=== PATIENT | male | born 1955 | race Caucasian/White ===

== ENCOUNTER 2018-06-08 00:09 | Day surgery (SDC) | payer OTHER ==
[~2018-06-08] VITALS: Ht 185.4 cm; Wt 116.6 kg
[2018-06-08] VITALS (7 sets, daily range): BP systolic 106–141; BP diastolic 69–88
[~2018-06-08 00:09] MED LIST: AMLO-127 PO; OLME1TAB5 PO
[2018-06-08] MEDS ORDERED: FAMOTIDINE 20 MG TAB PO ONE (06:00)
[2018-06-08] MEDS ORDERED: CELECOXIB 200 MG CAP PO ONE (06:00)
[2018-06-08] MEDS ORDERED: NORMOSOL R SOLN(*) 1000 ML BAG 1,000 ML IV PRN (06:00)
[2018-06-08] MEDS ORDERED: ceFAZolin(*) 2GM/D5W 50ML 50 ML IVPB ONE (06:00)
[2018-06-08] MEDS ORDERED: MIDAZOLAM 2 MG/2 ML VIAL IVP PRN (06:00)
[2018-06-08] MEDS ORDERED: LIDOCAINE/SOD BICARB 8.4% SYR ID ONE (06:00)
[2018-06-08] MEDS ORDERED: ONDANSETRON 4 MG/2 ML VIAL ONE (06:16)
[2018-06-08] MEDS ORDERED: DEXAMETHASONE SOD 4 MG/ML VIAL ONE (06:16)
[2018-06-08] MEDS ORDERED: METOCLOPRAMIDE 10 MG/2 ML SDV ONE (06:16)
[2018-06-08] MEDS ORDERED: LIDOCAINE MPF 1% 5 ML VIAL ONE (06:16)
[2018-06-08] MEDS ORDERED: PROPOFOL EMUL(*) 10MG/ML 20 ML 40 ML ONE (06:16)
[2018-06-08] MEDS ORDERED: fentaNYL CITR 100 MCG/2 ML AMP ONE ×4 (06:17→10:49)
[2018-06-08] MEDS ORDERED: ROPIVACAINE 0.2% 20 ML VIAL ONE (06:30)
[2018-06-08] MEDS ORDERED: ACETAMINOPHEN(*)1000 MG/100 ML 100 ML IVPB ONE (08:58)
[2018-06-08] MEDS ORDERED: PER PO (09:35)
--- NOTE | 2018-06-08 10:07 | OPERATIVE REPORT 1 ---
EVENT DATE: June 08, 2018 SURGEON: Jorge Alicea MD ANESTHESIOLOGIST: Cruz Lee MD ANESTHESIA: General LMA. 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 PROCEDURES PERFORMED 1. Take-down of ulnar malunion and revision of ulnar malunion. 2. Open reduction internal fixation. 3. Open reduction of proximal radius with subsequent percutaneous pinning. FINDINGS The patient had a malunion of the ulna, which was causing dislocation of his radial head associated with this and once we got it fixed it was able to hold in position. ESTIMATED BLOOD LOSS Minimal. DRAINS None. COMPLICATIONS None. IMPLANTS USED [place] 28 plate, eight-hole straight plate for the ulna, which had nonlocking and locking screws associated with it and also two K-wires in the radial head. SPECIMENS None. TOURNIQUET TIME Just under two hours. INDICATIONS AND HISTORY This patient is a 63-year old male who presented to my clinic for evaluation of an ulnar malunion. He had been treated elsewhere initially with a Monteggia type fracture, which was diagnosed as a radial head injury and then he had an ulnar malunion go on to create a radial head dislocation with fracture associated with this and so, therefore, we got him set up to do a take-down of the malunion and then repeat fixation with reduction of the radial head and probable pinning. Unfortunately, he was delayed another 1-1/2 months to 2 months secondarily due to health concerns before we could get him into the operating room so he formed quite a bit of robust callus over this area. We talked to him about the risks and benefits associated with this. We talked to him specifically about relief and issues associated with the long-term and also failed reduction of the radial head after even the best attempts associated with this that may result in a radial head resection or replacement at some point. After discussion of those risks and benefits, informed consent was obtained. We discussed also neurovascular injury as well as muscular injury associated with this. Informed consent was obtained at the last clinic visit and we got him set up to do this today. We also talked to him about how he would lose motion associated with his elbow. DESCRIPTION OF PROCEDURE The patient was brought into the operating room. He and the procedure were both verified. He was placed supine on the operative table and induced and intubated by Anesthesia. The left upper extremity was then prepped and draped in the usual fascia and a time-out was observed, verifying the correct patient and procedure. The standard incision was made over the ulna and it was taken through the skin and subcutaneous tissue. I encountered a robust amount of callus for the ulnar malunion as it was mal-reduced associated with this so, therefore, I had to take all of this down. Eventually, using a small sagittal saw to create clean cuts and then in order to create the ulnar shaft, I then had to drill into the shaft itself in order to get it well aligned. Once I had it well aligned, I was then able to place an eight-hole [place] plate onto the ulna itself and put three screws distally and four screws proximally in order to hold it in place. Once I had it in good position and two locking screws on the end of each side, I was then able to fill in the void with a bone graft in order to fill this back in. Once I was able to do this, I was then able to supinate and pronate the wrist pretty well and the radial head did go back into position with a supinated process. We then irrigated with copious amount of saline and then we attempted to close reduce the radius and pin into place. Unfortunately, this was not holding with just one pin so, therefore, we had to open it. I then irrigated with copious amounts of saline on the old incision, closed the periosteum and used 3-0 Vicryl in the subcutaneous tissue and then turned attention back to the radius. I then was able to open up the radiocapitellar joint. I was able to get a good look at it and clear off all the soft tissues in this area, manually reduce it in this area and then pin it from distal to proximal and then proximal to distal in order to hold it in place and keep it in an inferior position. Once I got it to be good in the inferior position, I then irrigated this with copious amounts of saline and then closed the periosteum and joint capsule with a 2-0 Vicryl and then 3-0 Vicryl in the subcutaneous tissue and then 4-0 Monocryl in the skin on both incisions. The wounds were then dressed with Steri-Strips, gauze, 4x4's and anesthetized with ropivacaine and then the patient was put in a posterior and sugar-tong splint, awakened and extubated and transferred to PACU in stable condition. CHERYL
--- NOTE | 2018-06-08 10:11 | RADIOLOGY IMAGING REPORT ---
FACILITY: [facility] - [place] PATIENT NAME: Romel Singh : 1955 MR: [id number] V: [id number] EXAM DATE: ORDERING PHYSICIAN: NIRAJ PRADO TECHNOLOGIST: Location: [facility] Patient: Romel Singh : 1955 Visit/Account:[id number] Date of Sevice: 06/08/2018 EXAMINATION: Intraoperative fluoroscopy with imaging of the left upper extremity 06/08/2018 8:17 AM HISTORY: LEFT ULNAR ORIF COMPARISON: None available FLUOROSCOPY TIME: 22.5 seconds DOSE: DAP was 0.2745 Gy*cm2. FINDINGS: Intraoperative fluoroscopy was provided. Images show plate and screw fixation along the s haft of the left ulna and pending in the elbow. IMPRESSION: Intraoperative fluoroscopy for left arm ORIF. Report Dictated By: Moris Oconnor MD at 06/08/2018 9:44 AM Report E-Signed By: Moris Oconnor MD at 06/08/2018 9:46 AM WSN:[email or web address]
[2018-06-08] MEDS ORDERED: oxyCODONE HCL 5 MG CAP PO ONE (11:30)
--- NOTE | 2018-06-08 12:38 | NUR ---
1110 PT ARRIVED TPO SD VIA CART, SAFETY MAINTAINED, SBAR FROM Shayna RAMIREZ RN, VSS, PT TOLERATING ICE WATER PAIN 09/29 1130 VVS, STARTED PROCESS TO GIVE FIRST PO PAIN PILL 1145 5MG OXYCODONE GIVEN, DOWN TO 1L NC, BROUGHT TO BEDSIDE IN WC. PT TOLERATING CHEESE, CRACKERS, AND PUDDING. 1200 PT NEEDS TO USE REST ROOM, STARTED ORTHOSTATIC VITALS, PT STATES 'I DO NOT FEEL SO GOOD' WHEN SITTING UP, UNABLE TO RESPOND TO SPECIFICS ABOUT NAUSEA, LIGHTHEADEDNESS, DROWSY. SPENT OVER 20 MIN IN ROOM WITH PT AND GOING OVER OPTIONS AND TRYING TO GET A DECISION ON HOW BEST TO HELP PT VOID, LEFT PT WITH URINAL IN BED, UNABLE TO VOID. ON 1L NC 1215 NURSE RETURNED TO ROOM, PT IN BED, DIAPHORETIC, PLACED BACK ON O2, SATTS HAD NOT DROPPED BELOW 86%, BUMPED UP TO 2L FOR NOW, ALL OTHER VSS 1230 DOWN TO 0.5L, STABLE, STILL NOT ANSWERING QUESTIONS OR FOLLOWING DIRECTIONS. MAKING STATEMENTS WITHOUT CONTEXT, SEEMS TO THINK THE BEHAVIOR IS STRANGE WELL. TRIED AGAIN TO VOID IN URINAL, UNSUCCESSFUL, WOULD LIKE TO SLEEP, LEFT WITH CALL LIGHT, RAILS UP, AND IN ROOM. 1250 SBAR TO Branden OSMAN RN
== END 2018-06-08 11:10 | disposition home or self-care (01) ==
LOC: OR 00:09
PROVIDERS: ATTEND Orthopaedic Surgery
DX: S52.272A Monteggia's fracture of left ulna, initial encounter for closed fracture (principal)
CPT/HCPCS: 25400; 76000; 94667; A4565; C1713; J0131; J1100; J2001; J2405; J2704; J2765; J2795; J3010; J0690

== ENCOUNTER 2018-08-02 19:47 | Inpatient (IN) | payer OTHER ==
[~2018-08-02] VITALS: Ht 185.4 cm; Wt 115.7 kg
[~2018-08-02 19:47] MED LIST changes: +PER PO
--- NOTE | 2018-08-02 20:16 | ER Report ---
History and Physical Time Seen By MD: 20:38 HPI/ROS CHIEF COMPLAINT: arm swelling, drainage and pain HISTORY OF PRESENT ILLNESS: This is a 63 year old male. He came to the ER tonight because of severe swelling of the left elbow area. Has had surgeries recently to repair the Elbow, records indicate problems with non-healing fractures. Cast off on Thursday. Since then rapid increase of swelling and redness. Drainage from the areas in the skin where his pins were removed, described as large amounts of pus coming from these areas. Pain is severe. Area is hot. Called Dr. Alicea's office today, they called in prescription for Augmentin, and said that they would look at it tomorrow as Dr. Alicea will be operating on his tomorrow. They are here from [place], [place]. He has no fevers at this time. He has normal sensation in the arm. He feels generally weak, but no focal weakness. Allergies: Coded Allergies: No Known Drug Allergies (Unverified , 06/02/18) Home Meds Reported Medications Amoxicillin/Potassium Clav (AMOX TR-K CLV 875-125 MG TAB) 1 Each Tablet, 1 EACH PO Q12H 08/02/18 Oxycodone/Acetaminophen (OXYCODONE/ACETAMINOPHEN 5MG/325 MG) 5 Mg/325 Mg Tab, 1 TAB PO Q4H PRN for PAIN, #30 06/08/18 Amlodipine Besylate (AMLODIPINE BESYLATE) 10 Mg Tablet, 1 TAB PO QDAY, TAB 06/02/18 Olmesartan/Hydrochlorothiazide (Olmesartan-Hctz 40-25 mg Tab) 40 Mg-25 Mg Tablet, 1 TAB PO DAILY 06/02/18 Reviewed Nurses Notes: Yes Hx Smoking: Yes (QUIT 2014, SOCIAL SMOKER) Smoking Status: Former Smoker Hx Alcohol Use: No Constitutional Vital Sign - Last 24 Hours 08/02/18 08/02/18 08/02/18 08/02/18 20:09 20:11 20:17 20:30 Temp 97.7 Pulse 79 81 Resp 18 B/P (MAP) 161/100 (120) 161/100 170/109 (129) Pulse Ox 96 96 O2 Delivery Room Air 08/02/18 08/02/18 08/02/18 08/02/18 20:47 21:00 21:17 21:30 Pulse 76 75 77 B/P (MAP) 171/106 (127) 150/98 (115) Pulse Ox 96 90 88 08/02/18 08/02/18 08/02/18 08/02/18 21:30 22:00 22:30 23:00 Pulse 75 75 76 B/P (MAP) 150/98 (115) 164/95 (118) ???/??? (1665) ???/??? (1665) Pulse Ox 88 87 87 08/02/18 08/02/18 08/03/18 23:30 23:33 00:00 Pulse 79 B/P (MAP) 126/81 (96) Pulse Ox 94 O2 Flow Rate 2.0 Physical Exam General Appearance: The patient is alert. No acute distress, but is anxious because of his arm. Eyes: Pupils are equal, round. No pallor, injection or icterus. ENT: Mucous membranes are moist. Respiratory: Lungs are clear to auscultation. Cardiovascular: Regular rate and rhythm. Normal capillary refill in the hand and normal pulses in the wrist. Neurological: Alert and oriented x3. Normal sensation in the left hand/arm. Skin: Red and swelling, very significant in the elbow area. Has breaks in the skin that tunnel and are draining purulent material at this time. Tender to touch and very warm. Musculoskeletal: Limited movement of the elbow because of pain and swelling. DIFFERENTIAL DIAGNOSIS: After history and physical exam, differential diagnosis was considered for concern for septic joint, cellulitis, osteomyelitis of the elbow. Medical Decision Making Data Points Result Diagram: 08/02/18211708/02/182117 Laboratory Hematology Test 08/02/18 21:18 Red Blood Count 3.81 M/uL (4.00-5.60) Mean Corpuscular Volume 85.1 fL (80.0-96.0) Mean Corpuscular Hemoglobin 28.9 pg (26.0-33.0) Mean Corpuscular Hemoglobin Concent 33.9 g/dL (32.0-36.0) Red Cell Distribution Width 14.3 % (11.5-14.5) Mean Platelet Volume 7.8 fL (7.2-11.1) Neutrophils (%) (Auto) 64.6 % (39.4-72.5) Lymphocytes (%) (Auto) 20.2 % (17.6-49.6) Monocytes (%) (Auto) 10.0 % (4.1-12.4) Eosinophils (%) (Auto) 4.5 % (0.4-6.7) Basophils (%) (Auto) 0.7 % (0.3-1.4) Nucleated RBC Relative Count (auto) 0.0 /100WBC Neutrophils # (Auto) 7.1 K/uL (2.0-7.4) Lymphocytes # (Auto) 2.2 K/uL (1.3-3.6) Monocytes # (Auto) 1.1 K/uL (0.3-1.0) Eosinophils # (Auto) 0.5 K/uL (0.0-0.5) Basophils # (Auto) 0.1 K/uL (0.0-0.1) Nucleated RBC Absolute Count (auto) 0.01 K/uL Erythrocyte Sedimentation Rate 66 mm/HOUR (0-20) Sodium Level 139 mmol/L (137-145) Potassium Level 3.3 mmol/L (3.5-5.0) Chloride Level 101 mmol/L (98-107) Carbon Dioxide Level 28 mmol/L (22-30) Blood Urea Nitrogen 21 mg/dl (9-21) Creatinine 1.00 mg/dl (0.66-1.25) Glomerular Filtration Rate Calc > 60.0 Random Glucose 121 mg/dl (75-110) Calcium Level 8.7 mg/dl (8.4-10.2) Total Bilirubin 0.2 mg/dl (0.2-1.3) Aspartate Amino Transf (AST/SGOT) 21 U/L (0-35) Alanine Aminotransferase (ALT/SGPT) 23 U/L (0-56) Alkaline Phosphatase 96 U/L (0-126) C-Reactive Protein 7.2 mg/dl (<1.0) Total Protein 8.5 g/dl (6.3-8.2) Albumin 3.8 g/dl (3.5-5.0) Chemistry Test 08/02/18 21:18 White Blood Count 10.9 k/uL (4.5-11.0) Red Blood Count 3.81 M/uL (4.00-5.60) Hemoglobin 11.0 g/dL (14.0-18.0) Hematocrit 32.4 % (42.0-52.0) Mean Corpuscular Volume 85.1 fL (80.0-96.0) Mean Corpuscular Hemoglobin 28.9 pg (26.0-33.0) Mean Corpuscular Hemoglobin Concent 33.9 g/dL (32.0-36.0) Red Cell Distribution Width 14.3 % (11.5-14.5) Platelet Count 386 K/uL (150-450) Mean Platelet Volume 7.8 fL (7.2-11.1) Neutrophils (%) (Auto) 64.6 % (39.4-72.5) Lymphocytes (%) (Auto) 20.2 % (17.6-49.6) Monocytes (%) (Auto) 10.0 % (4.1-12.4) Eosinophils (%) (Auto) 4.5 % (0.4-6.7) Basophils (%) (Auto) 0.7 % (0.3-1.4) Nucleated RBC Relative Count (auto) 0.0 /100WBC Neutrophils # (Auto) 7.1 K/uL (2.0-7.4) Lymphocytes # (Auto) 2.2 K/uL (1.3-3.6) Monocytes # (Auto) 1.1 K/uL (0.3-1.0) Eosinophils # (Auto) 0.5 K/uL (0.0-0.5) Basophils # (Auto) 0.1 K/uL (0.0-0.1) Nucleated RBC Absolute Count (auto) 0.01 K/uL Erythrocyte Sedimentation Rate 66 mm/HOUR (0-20) Glomerular Filtration Rate Calc > 60.0 Calcium Level 8.7 mg/dl (8.4-10.2) Total Bilirubin 0.2 mg/dl (0.2-1.3) Aspartate Amino Transf (AST/SGOT) 21 U/L (0-35) Alanine Aminotransferase (ALT/SGPT) 23 U/L (0-56) Alkaline Phosphatase 96 U/L (0-126) C-Reactive Protein 7.2 mg/dl (<1.0) Total Protein 8.5 g/dl (6.3-8.2) Albumin 3.8 g/dl (3.5-5.0) Microbiology Microbiology Date/Time Source Procedure Growth Status 08/02/18 23:44 Arm Left Gram Stain - Final Resulted 08/02/18 23:44 Arm Left Wound Culture Pending Resulted 08/02/18 23:44 Arm Left Anaerobic Culture Pending Resulted EKG/Imaging Imaging EXAMINATION: CT left elbow with contrast 08/02/2018 8:54 PM HISTORY: elbow infection, swelling, drainage TECHNIQUE: Helical imaging covering the left elbow was done with injection of intravenous contrast. Source data is reconstructed with bony and soft tissue reconstruction algorithms and axial, sagittal, and coronal planes. Contrast: 75 mL of IV Isovue 370 One of the following dose optimization techniques was utilized in the performance of this exam: Automated exposure control; adjustment of the mA and/or kV according to the patient's size; or use of an iterative reconstruction technique. Specific details can be referenced in the facility's radiology CT exam operational policy. COMPARISON: None FINDINGS: Left elbow joint effusion is present with enhancement along the synovial margins suggesting a septic arthritis. There are some cortical lucencies along the articular surface and the proximal ulna and there are also lucencies in the radial head as well as in the anterior aspect of the distal humerus just above the coronoid process, as well as cortical lucency along the articular surface of the coronoid There is periosteal reaction along the radial shaft. Soft tissues around the elbow are swollen. Collection in the olecranon bursa with enhancing margins measures 1.3 x 1.1 x 2.5 cm suggesting infected bursitis. There is also a fluid collection medial to the elbow at the level of the coronoid process of ulna which measures 2 x 1 cm longitudinally and 1.6 x 1.1 cm in the transverse plane. There appears to be a few other scattered small focal fluid collections or abscesses elsewhere in the soft tissues. No significant soft tissue gas collection. Soft tissues around the elbow in general are diffusely swollen. IMPRESSION: Findings of septic arthritis with likely osteomyelitis in the radial head and probably distal humerus and the proximal ulna with multiple soft tissue abscess collections around the elbow as well. Report Dictated By: Moris Oconnor MD at 08/02/2018 11:00 PM ED Course/Re-evaluation Clinical Indication for ER IV: Hydration, IV Access ED Course Vital signs remain stable. He is afebrile and not tachycardic. No sign of systemic sepsis at this time. IV started and given Dilaudid to help with pain. Labs obtained and white count normal. He does have ESR of [address] scan with contrast obtained, shows signs of osteomyelitis, septic arthritis, and soft tissue abscesses throughout the elbow. Blood cultures obtained. Also wound cultures, bot aerobic and anaerobic. Called and spoke with Dr. Yoo, orthopedic surgery regional tanker truck driver. Requested that the patient be admitted and we will start Vancomycin and Zosyn. Will keep the patient NPO except for meds, for need for surgery tomorrow. Discussed the findings with the patient, and answered his questions. Orthopedic surgery requested consult from hospitalist service to help with antibiotic and medical management. Holding orders written for admission. Decision to Disposition Date: August 02, 2018 Decision to Disposition Time: 23:30 Depart Departure Latest Vital Signs Vital Signs Date Time Temp Pulse Resp B/P (MAP) Pulse Ox O2 Delivery O2 Flow Rate FiO2 08/03/18 00:00 126/81 (96) 08/02/18 23:33 79 94 08/02/18 23:30 2.0 08/02/18 20:11 97.7 18 Room Air Impression: Primary Impression: Osteomyelitis Additional Impressions: Septic arthritis Cellulitis Condition: Condition Unchanged Disposition: Admitted from ER Problem Qualifiers Primary Impression: Osteomyelitis Osteomyelitis type: unspecified type Osteomyelitis location: multiple sites Qualified Codes: M86.9 - Osteomyelitis, unspecified Additional Impressions: Septic arthritis Septic arthritis location: elbow Septic arthritis organism: due to unspecified organism Laterality: left Qualified Codes: M00.9 - Pyogenic arthritis, unspecified Cellulitis Site of cellulitis: extremity Site of cellulitis of extremity: upper extremity Laterality: left Qualified Codes: L03.114 - Cellulitis of left upper limb BENEDICT AGUIRRE MD August 02, 2018 20:16
[2018-08-02] MEDS ORDERED: AMOX1TAB9 PO (20:30)
[2018-08-02] MEDS ORDERED: IOPAMIDOL 76% 100 ML INFUS BTL 100 ML ONE (21:11)
[2018-08-02 21:37] LABS: PLATELET COUNT, AUTOMATED 386 K/uL (150-450)
[2018-08-02] MEDS ORDERED: HYDROMORPHONE HCL 1 MG/ML SYRINGE IVP ONE (23:00)
--- NOTE | 2018-08-02 23:13 | RADIOLOGY IMAGING REPORT ---
FACILITY: [facility] PATIENT NAME: Romel Singh : 1955 MR: [id number] V: [id number] EXAM DATE: ORDERING PHYSICIAN: BENEDICT AGUIRRE TECHNOLOGIST: [place] [facility] [place] : 1955 Visit/Account:[id number] Date of Sevice: 08/02/2018 EXAMINATION: CT left elbow with contrast 08/02/2018 8:54 PM HISTORY: elbow infection, swelling, drainage TECHNIQUE: Helical imaging covering the left elbow was done with injection of intravenous contrast. S ource data is reconstructed with bony and soft tissue reconstruction algorithms and axial, sagittal, and coronal planes. Contrast: 75 mL of IV Isovue 370 One of the following dose optimization techniques was utilized in the performance of this exam: Autom ated exposure control; adjustment of the mA and/or kV according to the patient's size; or use of an i terative reconstruction technique. Specific details can be referenced in the facility's radiology C T exam operational policy. COMPARISON: None FINDINGS: Left elbow joint effusion is present with enhancement along the synovial margins suggestin g a septic arthritis. There are some cortical lucencies along the articular surface and the proximal ulna and there are also lucencies in the radial head as well as in the anterior aspect of the distal humerus just above the coronoid process, as well as cortical lucency along the articular surface of t he coronoid There is periosteal reaction along the radial shaft. Soft tissues around the elbow are sw ollen. Collection in the olecranon bursa with enhancing margins measures 1.3 x 1.1 x 2.5 cm suggestin g infected bursitis. There is also a fluid collection medial to the elbow at the level of the coronoi d process of ulna which measures 2 x 1 cm longitudinally and 1.6 x 1.1 cm in the transverse plane. Th ere appears to be a few other scattered small focal fluid collections or abscesses elsewhere in the s oft tissues. No significant soft tissue gas collection. Soft tissues around the elbow in general are diffusely swollen. IMPRESSION: Findings of septic arthritis with likely osteomyelitis in the radial head and probably di stal humerus and the proximal ulna with multiple soft tissue abscess collections around the elbow as well. Report Dictated By: Moris Oconnor MD at 08/02/2018 11:00 PM Report E-Signed By: Moris Oconnor MD at 08/02/2018 11:09 PM WSN:[id number]
[2018-08-02] MEDS ORDERED: amLODIPine BESYL(*) 5 MG TAB PO ONE (23:50)
[2018-08-02] MEDS ORDERED: HYDROCHLOROTHIAZIDE 25 MG TAB PO ONE (23:50)
[2018-08-02] MEDS ORDERED: VANCOMYCIN(*) 1 GM VIAL 2.5 GM in NS(*) 0.9% 250 ML BAG 250 ML IVPB ONE (23:50)
[2018-08-02] MEDS ORDERED: PIPERACILLIN/TAZO* 4.5 GM VIAL 4.5 GM in NS(*) 0.9% 100 ML MINI-BAG 100 ML IVPB ONE (23:50)
[2018-08-02] MEDS ORDERED: VANCOMYCIN 1 GM VIAL ONE (23:59)
[2018-08-02] MEDS ORDERED: PIPERACILLIN/TAZO 4.5 GM VIAL IVPB ONE (23:59)
[2018-08-03] VITALS (9 sets, daily range): BP systolic 158–196; BP diastolic 97–126
[2018-08-03] MEDS ORDERED: HYDROMORPHONE HCL 1 MG/ML SYRINGE IVP ONE (01:10)
[2018-08-03] MEDS ORDERED: ONDANSETRON 4 MG/2 ML VIAL IVP PRN ×2 (02:15→18:25)
[2018-08-03] MEDS ORDERED: ONDANSETRON 4 MG ODT TABDP SL PRN (02:15)
[2018-08-03] MEDS: oxyCODON/ACET (*)5/325MG (CII) 1 TAB TAB PO PRN ×4 (02:41→20:39)
--- NOTE | 2018-08-03 02:54 | Hospitalist Consultation ---
History of Present Illness Requesting Physician Dr. Alicea/Fredo Reason for Consult Medical co-management Chief Complaint Left elbow and arm pain History of Present Illness 63yo male with PMHx significant for HTN, left ulnar malunion s/p ORIF. He is currently admitted to the orthopedic service with possible septic arthritis/osteomyelitis/soft tissue abscesses. His current complaints are mainly pain in left elbow region with significant limitation of ROM. He has noted significant swelling and purulent drainage. He has been on oral Augmentin. His HTN is managed with Benicar HCT and amlodipine. He denies any CP or SOB. He denies any history of heart or lung disease. He has no history of bleeding or clotting problems. No problems with anesthesia in the past. History Problems: (1) HTN (hypertension) Status: Chronic (2) Left ulnar fracture Status: Chronic Home Meds Reported Medications Amoxicillin/Potassium Clav (AMOX TR-K CLV 875-125 MG TAB) 1 Each Tablet, 1 EACH PO Q12H 08/02/18 Oxycodone/Acetaminophen (OXYCODONE/ACETAMINOPHEN 5MG/325 MG) 5 Mg/325 Mg Tab, 1 TAB PO Q4H PRN for PAIN, #30 06/08/18 Amlodipine Besylate (AMLODIPINE BESYLATE) 10 Mg Tablet, 1 TAB PO QDAY, TAB 06/02/18 Olmesartan/Hydrochlorothiazide (Olmesartan-Hctz 40-25 mg Tab) 40 Mg-25 Mg Tablet, 1 TAB PO DAILY 06/02/18 Allergies: Coded Allergies: No Known Drug Allergies (Unverified , 06/02/18) Other Social/Family Hx He is and lives in [place], [place]. He works at [employer]. Hx Smoking: Yes (QUIT 2014, SOC[employer] SMOK[employer]) Smoking Status: Former Smoker (he does chew tobacco) Caffeine Intake: Coffee Caffeine/Cups Per Day: 2 CCD, Hx Alcohol Use: No Hx Substance Use Disorder: No Social Drug Use: Never Review of Systems Constitutional: Fever Cardiovascular: No Chest Pain, No Palpitations Respiratory: No Shortness of Breath Exam Vital Signs Vital Signs Date Time Temp Pulse Resp B/P (MAP) Pulse Ox O2 Delivery O2 Flow Rate FiO2 08/03/18 01:32 98.3 74 16 184/107 (132) 95 Nasal Cannula 2.0 General Appearance: Alert, Awake Eyes: PERRLA ENT: Oropharynx Clear Cardiovascular: Regular Rate and Rhythm, No JVD Respiratory: Clear to Auscultation Chest: No Tenderness GI: Abd Soft and Non-Tender : No CVA Tenderness Musculoskeletal: Other (significant limitation of ROM through left elbow/appe ars to be significant joint effusion) Extremities: Warm, Perfused, Edema (left upper extremity extends from mid- humeral area through elbow and into hand) Integumentary: Other (erythema extends from just proximal left elbow distally to wrist/a couple of areas proximally are draining purulent material) Psych: Alert & Oriented X3 Medical Decision Making Data Points Result Diagram: 08/02/18211708/02/182117 Item Value Date Time Albumin 3.8 g/dl 08/02/182117 Total Protein 8.5 g/dl H 08/02/182117 C-Reactive Protein 7.2 mg/dl H 08/02/182117 Alkaline Phosphatase 96 U/L 08/02/182117 Alanine Aminotransferase (ALT/SGPT) 23 U/L 08/02/182117 Aspartate Amino Transf (AST/SGOT) 21 U/L 08/02/182117 Total Bilirubin 0.2 mg/dl 08/02/182117 Calcium Level 8.7 mg/dl 08/02/182117 Assessment and Plan Problems: (1) HTN (hypertension) Status: Chronic Assessment & Plan: Will monitor his BPs and resume his Benicar, HCTZ, and amlodipine as needed. Will modify regimen if necessary. (2) Hypokalemia Status: Acute Assessment & Plan: Most likely due to diuretic use. Will replace with IV supplement as he is NPO for now. Watch labs. (3) Osteomyelitis Status: Acute Assessment & Plan: He has been started on IV Zosyn and vancomycin. This should provide good coverage for potential gram positive and gram negative organisms, but there is potential nephrotoxicity with the combination. We may want to change from Zosyn to cefepime. Will need to monitor vancomycin levels. Surgical intervention is planned as well. He should be a reasonable candidate for surgery and anesthesia. (4) Cellulitis Status: Acute Assessment & Plan: See above. (5) Septic arthritis Status: Acute Assessment & Plan: See above. Venous Thromboembolism Antithrombotics Is Pt On Any Antithrombotics?: No (surgery planned in very near future) Exam Sepsis Risk: No Definite Risk Problem Qualifiers (1) Osteomyelitis: Osteomyelitis type: unspecified type Osteomyelitis location: multiple sites Qualified Codes: M86.9 - Osteomyelitis, unspecified (2) Cellulitis: Site of cellulitis: extremity Site of cellulitis of extremity: upper extremity Laterality: left Qualified Codes: L03.114 - Cellulitis of left upper limb (3) Septic arthritis: Septic arthritis location: elbow Septic arthritis organism: due to unspecified organism Laterality: left Qualified Codes: M00.9 - Pyogenic arthritis, unspecified BOB MOORE MD August 03, 2018 02:54
[2018-08-03] MEDS ORDERED: KCL (*) 20 MEQ/100 ML PREMIX 100 ML IV ONE (03:10)
[2018-08-03] MEDS ORDERED: NS(*) 0.9% 500 ML BAG 500 ML ONE (03:28)
[2018-08-03] MEDS ORDERED: CEFEPIME HCL 2 GM VIAL IVP SCH (04:00)
[2018-08-03] MEDS ORDERED: PIPERACILLIN/TAZO*3.375GM VIAL 3.375 GM in NS(*) 0.9% 100 ML MINI-BAG 100 ML IVPB SCH (06:00)
[2018-08-03 06:22] LABS: PLATELET COUNT, AUTOMATED 326 K/uL (150-450)
--- NOTE | 2018-08-03 06:52 | EKG ---
FACILITY: [facility] PATIENT NAME: ANA FUNK : [id number] MR: [id number] V: [id number] EXAM DATE: ORDERING PHYSICIAN: BOB MOORE TECHNOLOGIST: CARLOS MANUEL Armstrong Reason : PRE-OP Blood Pressure : / mmHG Vent. Rate : 058 BPM Atrial Rate : 187 BPM P-R Int : 000 ms QRS Dur : 112 ms QT Int : 488 ms P-R-T Axes : 047 031 090 degrees QTc Int : 479 ms Atrial flutter with 2:[address] and T wave abnormality Prolonged QT Abnormal ECG No previous ECGs available Confirmed by Dionte Blanco ([id number]) on 08/03/2018 9:46:30 PM Referred By: OSCAR Confirmed By:Dionte Ndiaye
[2018-08-03] MEDS: OLMESARTAN 20 MG TAB PO SCH (08:22)
[2018-08-03] MEDS ORDERED: OLMESARTAN 20 MG TAB PO SCH ×2 (09:00→21:00)
[2018-08-03] MEDS ORDERED: KCL/NS* 20 MEQ/1000 ML PREMIX 1,000 ML IV SCH (11:05)
[2018-08-03] MEDS ORDERED: VANCOMYCIN(*) 1 GM VIAL 1 GM, VANCOMYCIN (*) 0.5 GM VIAL 0.5 GM in NS(*) 0.9% 250 ML BA... IVPB SCH (12:00)
--- NOTE | 2018-08-03 13:03 | Pharmacy Note ---
Vancomycin Management Note Vanco Dosing Note Pharmacy Services Pharmacokinetic Dosing Consult, Vancomycin Pharmacy has been consulted for dosing and monitoring of vancomycin for 63 yo male for possible septic arthritis/osteomyelitis/soft tissue abscesses. Pertinent Past Medical History: HTN, left ulnar malunion s/p ORIF Antibiotics prior to admission; Augmentin Additional Antimicrobials: Cefepime 2 gm IVP q12h Patient Information: Height (cm): 182.42 Actual Body Weight (ABW): 115.7 kg; AdjBW 94.2 kg; IBW 79.9 kg Pertinent Lab Tests WHITE BLOOD COUNT 10.4--> 9.6 NEUTROPHILS 64.5-->62.9 SCR 1.00-->0.9 Culture Results: BLOOD drawn in ED WOUND drawn in ED (going to OR today) Assessment: CrCl 94.9 ml/min with IBW; 111 ml/min with AdjBW Renal function appears stable. Vancomycin Monitoring Assessment Goal Vancomycin Trough Level: 15-20 Plan: 1) Vancomycin 25 mg/kg loading dose (based on ABW): 2500 mg IV x 1 2) Vancomycin maintenance dose (based on ABW): 1500 mg IV q12h 3) Vancomycin monitoring: Trough to be drawn on 08/04/18 before 4th dose.(1100) Pharmacy will continue to monitor daily and adjust regimen as appropriate. Thank you for the consult. TOM JONES August 03, 2018 13:03
[2018-08-03] MEDS ORDERED: FAMOTIDINE(*) 20MG/50ML PREMIX 50 ML IVPB ONE (14:25)
[2018-08-03] MEDS ORDERED: NORMOSOL R SOLN(*) 1000 ML BAG 1,000 ML IV PRN (14:25)
[2018-08-03] MEDS ORDERED: ROPIVACAINE 0.2% 20 ML VIAL ONE (15:18)
--- NOTE | 2018-08-03 15:42 | Hospitalist Progress Note ---
Subjective Progress Notes Subjective 63M admitted for abscess, surgical site infection, possible osteo. MIGUEL overnight, to OR for I&D today. Patient Complains of: Gastrointestinal: No Nausea, No Vomiting Musculoskeletal: Pain, Impaired Mobility Physical Exam Vital Signs Date Time Temp Pulse Resp B/P (MAP) Pulse Ox O2 Delivery O2 Flow Rate FiO2 08/03/18 15:26 97.4 75 16 188/105 (132) 92 Room Air 08/03/18 14:33 1.0 Intake and Output 08/03/18 07:00 Intake Total 100 ml Balance 100 ml IV Total 100 ml # Voids 3 General Appearance: Alert, Awake, No Acute Distress, Afebrile Neuro: No Gross deficits Cardiovascular: Normal Rhythm & Peripheral Pulses Respiratory: No Respiratory Distress Extremities: Warm, Pulses, Perfused, Edema (L hand and elbow edema), Other (L elbow edema, erythema, purulent drainage) Result Diagram: 08/03/1854708/03/18547 Assessment and Plan Problems: (1) Septic arthritis Status: Acute Assessment & Plan: See above. (2) Osteomyelitis Status: Acute Assessment & Plan: He has been started on IV Zosyn and vancomycin, Zosyn changed to cefepime. Monitor vancomycin levels. I&D today. (3) HTN (hypertension) Status: Chronic Assessment & Plan: Will monitor his BPs and resume his Benicar, HCTZ, and amlodipine as needed. Will modify regimen if necessary. (4) Hypokalemia Status: Acute Assessment & Plan: Improved, supplement PRN. Watch labs. (5) Cellulitis Status: Acute Assessment & Plan: See above. Exam Sepsis Risk: No Definite Risk Problem Qualifiers (1) Septic arthritis: Septic arthritis location: elbow Septic arthritis organism: due to unspecified organism Laterality: left Qualified Codes: M00.9 - Pyogenic arthritis, unspecified (2) Osteomyelitis: Osteomyelitis type: unspecified type Osteomyelitis location: multiple sites Qualified Codes: M86.9 - Osteomyelitis, unspecified (3) Cellulitis: Site of cellulitis: extremity Site of cellulitis of extremity: upper extremity Laterality: left Qualified Codes: L03.114 - Cellulitis of left upper limb ARMANDO MANZO DO August 03, 2018 15:42
[2018-08-03] MEDS ORDERED: MIDAZOLAM 2 MG/2 ML VIAL ONE (16:03)
[2018-08-03] MEDS ORDERED: BACITRACIN 50000 UNIT/VIAL 100,000 UNIT in NS 0.9% 3000 ML IRRIGATION BAG 3,000 ML IR ONE (16:50)
[2018-08-03] MEDS: CEFEPIME HCL 2 GM VIAL IVP SCH (16:50)
[2018-08-03] MEDS ORDERED: DEXAMETHASONE SOD 4 MG/ML VIAL ONE (16:56)
[2018-08-03] MEDS ORDERED: ONDANSETRON 4 MG/2 ML VIAL ONE (16:56)
[2018-08-03] MEDS ORDERED: DEXAMETHASONE SOD PHOS 10MG/ML ONE (16:56)
[2018-08-03] MEDS ORDERED: PROPOFOL EMUL 10 MG/ML ONE ×2 (16:56→16:59)
[2018-08-03] MEDS ORDERED: diphenhydrAMINE 25 MG CAP PO PRN (18:25)
[2018-08-03] MEDS ORDERED: PROMETHAZINE 25 MG/ML 1 ML AMP IVP PRN (18:25)
[2018-08-03] MEDS ORDERED: BISACODYL 10 MG SUPP PR PRN (18:25)
[2018-08-03] MEDS ORDERED: diphenhydrAMINE 50 MG/ML VIAL IVP PRN (18:25)
[2018-08-03] MEDS ORDERED: LR 1000 ML BAG 1000 ML IV PRN (18:25)
[2018-08-03] MEDS ORDERED: MAGNESIUM HYDROXIDE* 30ML UDCP PO PRN (18:25)
[2018-08-03] MEDS ORDERED: HYDROmorphone HCL 2 MG/ML SDV IVP PRN (18:25)
[2018-08-03] MEDS ORDERED: MAGNESIUM CITRATE 300 ML BTL PO PRN (18:25)
[2018-08-03] MEDS ORDERED: ZOLPIDEM TARTRATE 5 MG TAB PO PRN (18:25)
[2018-08-03] MEDS ORDERED: fentaNYL CITR 100 MCG/2 ML AMP ONE (18:32)
--- NOTE | 2018-08-03 19:36 | OPERATIVE REPORT 1 ---
EVENT DATE: August 03, 2018 SURGEON: Jorge Alicea MD ANESTHESIOLOGIST: Braulio Grimm MD ANESTHESIA: General LMA. RN CARDIOVASCULAR: Burton Barker PA-C PREOPERATIVE DIAGNOSIS Infected wounds of his left elbow. POSTOPERATIVE DIAGNOSIS Infected wounds of his left elbow. PROCEDURE PERFORMED Irrigation and debridement with removal of tissue of deep wounds and abscesses associated with his left forearm and left elbow. FINDINGS The patient had a significant amount of tracking associated with the forearm wound, which did have some purulent discharge associated with it, but was amenable for I and D, and there were no signs of problems all the way down into the joint. ESTIMATED BLOOD LOSS 100 mL. DRAINS None. COMPLICATIONS None. TOURNIQUET TIME Not applicable. IMPLANTS USED None. SPECIMENS None. INDICATIONS AND HISTORY This patient is a 63-year-old male who presented to my clinic for an ulnar nonunion that caused a radial head dislocation. We had subsequently fixed that, and then, unfortunately, he had moved his arm quite a bit and bent the pins, and the pins ended up burying themselves underneath the skin. We had removed the pins and irrigated and debrided the wounds, which he had some purulence associated with that one. We did this a couple of weeks ago. He then was doing okay. We actually saw him four days ago, and he had just a little bit of erythema around the posterior incision. We told him to watch it and, unfortunately, it blew up and became very erythematous and then had a significant discharge associated with it, and so he got admitted to the hospital last night, and we got him set up to do an irrigation and debridement today. The risks and benefits were discussed with the patient, and informed consent was obtained today in the hospital. He had already improved significantly with the antibiotics prior to irrigation and debridement. DESCRIPTION OF PROCEDURE As the patient was brought in the operating room, he and the procedure were both verified. He was placed supine on the operating table and induced and intubated by Anesthesia. The left upper extremity was then prepped and draped in the usual fashion. A timeout was observed verifying the correct patient and procedure. The prior incisions were then utilized. We then expressed some fluid out of both of them. The forearm incision was the one that had the more significant discharge associated with it and had some purulence associated with it. When we opened it up slightly, I was then able to track that up into the forearm all the way close to the wrist. I was then able to put a suction all the way into that area and then irrigated completely into that area using a bulb syringe. Once I was able to do this and then get all the infected and diseased tissue out of there, I then used the pulsatile lavage with bacitracin mixed in in order to irrigate and debride this entire area. I was then also able to use an Irrisept, which we irrigated all the way up into that area, and then let that sit for a minute at a time. We did this multiple times. Once I was able to irrigate everything, I then freshened up the skin edges and then closed the skin using a combination of 3-0 and 2-0 nylon in order to close down the skin. We did not use any tourniquet during the case to allow it to bleed and try and get some of the antibiotics to wash through this area as he just had another dose of antibiotics. Once we did this and closed everything up, we then cleaned off the skin. We covered it with Xeroform gauze 4 x 4's and a soft dressing, followed by an Brian wrap to try to get some of the swelling down. He will be admitted overnight in the hospital, and we will continue to watch him for a couple days and then discharge him at a later date. CHERYL
[2018-08-03] MEDS ORDERED: hydrALAZINE HCL 20 MG/ML VIAL IVP PRN (19:55)
[2018-08-03] MEDS: amLODIPine BESYL(*) 5 MG TAB PO SCH (20:37)
[2018-08-03] MEDS ORDERED: HYDROCHLOROTHIAZIDE 25 MG TAB PO SCH (21:00)
[2018-08-03] MEDS ORDERED: amLODIPine BESYL(*) 5 MG TAB PO SCH (21:00)
[2018-08-04] MEDS ORDERED: VANCOMYCIN 0.5 GM VIAL ONE (00:40)
[2018-08-04] MEDS ORDERED: VANCOMYCIN(*) 1 GM VIAL 1 GM, VANCOMYCIN HCL 0.750 GM VIAL 0.75 GM in NS(*) 0.9% 500 ML... IVPB SCH (00:45)
[2018-08-04] MEDS ORDERED: VANCOMYCIN 1 GM VIAL ONE (01:07)
[2018-08-04] MEDS ORDERED: NS(*) 0.9% 500 ML BAG 500 ML ONE (01:08)
[2018-08-04] MEDS: oxyCODON/ACET (*)5/325MG (CII) 1 TAB TAB PO PRN ×5 (01:27→21:05)
[2018-08-04 01:30] VITALS: BP 149/102
[2018-08-04] MEDS: CEFEPIME HCL 2 GM VIAL IVP SCH ×2 (05:16→16:54)
[2018-08-04 09:10] VITALS: BP 146/87
[2018-08-04] MEDS: OLMESARTAN 20 MG TAB PO SCH (09:13)
--- NOTE | 2018-08-04 11:47 | NUR ---
Occupational Therapy Impression Pt independent with all ADLs. (I) bed mobility. (I) functional mobility. (I) UB/LB dressing. (I) toileting. (I) grooming standing sinkfront. SpO2 WNL on room air. Educated on NWB L) UE, pt verbalized understanding. Since May, pt reports he has been completing ADLs/IADLs and assisting spouse with all cares utilizing only R UE. Pt reports no further questions/concerns/needs with regards to discharge home. No further skilled OT needs indicated at this time. Pt ok for discharge when medically appropriate. Occupational Therapy Goals Patient's Goal
[2018-08-04] MEDS ORDERED: VANCOMYCIN HCL IVPB SCH (12:00)
[2018-08-04] MEDS ORDERED: VANCOMYCIN IVPB SCH (12:00)
[2018-08-04] MEDS ORDERED: [UNRECOGNIZED DRUG - OTHER] IVPB SCH (12:00)
[2018-08-04 12:24] VITALS: BP 163/95
[2018-08-04] MEDS: VANCOMYCIN(*) 1 GM VIAL 1 GM, VANCOMYCIN HCL 0.750 GM VIAL 0.75 GM in NS(*) 0.9% 250 ML... IVPB SCH ×2 (12:29→23:57)
[2018-08-04] MEDS ORDERED: LIDOCAINE MPF 1% 5 ML VIAL ONE (12:42)
--- NOTE | 2018-08-04 13:44 | Hospitalist Progress Note ---
Subjective Progress Notes Subjective He was admitted with septic arthritis. He had I&D of elbow yesterday. He has some post-op pain, but overall he is doing well. Patient Complains of: Cardiovascular: No: Chest Pain Respiratory: No: Shortness of Breath Physical Exam Vital Signs Date Time Temp Pulse Resp B/P (MAP) Pulse Ox O2 Delivery O2 Flow Rate FiO2 08/04/18 12:24 98.3 83 16 163/95 (117) 91 Room Air 08/03/18 19:35 2.0 Intake and Output 08/04/18 01:00 Intake Total 2690 ml Output Total 200 ml Balance 2490 ml Intake Oral 360 ml IV Total 1330 ml Other 1000 ml Output Estimated Blood Loss 200 ml # Voids 8 General Appearance: Alert, Awake, No Acute Distress, Afebrile Neuro: No Gross deficits Cardiovascular: Regular Rate and Rhythm Respiratory: No Respiratory Distress, Clear to Auscultation Musculoskeletal: Other (left arm wrapped in shayy wrap, hand slightly swollen, b ut has good cap refill) Psych: Alert & Oriented X3, Appropriate Mood & Affect Result Diagram: 08/04/18 0604 08/04/18 06 Assessment and Plan Problems: (1) Septic arthritis Status: Acute Assessment & Plan: He was started on IV Zosyn and vancomycin, Zosyn changed to cefepime. Monitor vancomycin levels. I&D performed by Dr. Alicea on 08/03. He did not see evidence of osteomyelitis. He would like 3 weeks antibiotic treatment. Currently waiting for wound culture, is growing staph with beta lacta m positive. Will attempt to get PICC placement today. senior android developer to help with disposition for antibiotic treatment. (2) Osteomyelitis Status: Acute Assessment & Plan: See above. (3) HTN (hypertension) Status: Chronic Assessment & Plan: Will monitor his BPs and resume his Benicar, HCTZ, and amlodipine as needed. Will modify regimen if necessary. (4) Hypokalemia Status: Acute Assessment & Plan: Improved, supplement PRN. Watch labs. (5) Cellulitis Status: Acute Assessment & Plan: See above. Exam Sepsis Risk: No Definite Risk Problem Qualifiers (1) Septic arthritis: Septic arthritis location: elbow Septic arthritis organism: due to unspecified organism Laterality: left Qualified Codes: M00.9 - Pyogenic arthritis, unspecified (2) Osteomyelitis: Osteomyelitis type: unspecified type Osteomyelitis location: multiple sites Qualified Codes: M86.9 - Osteomyelitis, unspecified (3) Cellulitis: Site of cellulitis: extremity Site of cellulitis of extremity: upper extremity Laterality: left Qualified Codes: L03.114 - Cellulitis of left upper limb [facility] August 04, 2018 13:44
[2018-08-04 17:13] VITALS: BP 185/95
--- NOTE | 2018-08-04 17:39 | RADIOLOGY IMAGING REPORT ---
FACILITY: [facility] - [place] PATIENT NAME: Romel Singh : 1955 MR: [id number] V: [id number] EXAM DATE: ORDERING PHYSICIAN: TANNER ARTHUR TECHNOLOGIST: Location: [facility] [place] Patient: Romel Singh : 1955 Visit/Account:[id number] Date of Sevice: 08/04/2018 Exam type: US GUIDANCE VASCULAR ACCESS, PICC LINE INSERTION History: usp IV abx Comparison: None. Findings: Informed consent was obtained. The patient's right arm was prepped and draped usual sterile fashion. Local anesthesia was a copy with 1% lidocaine. Under direct sonographic guidance the patent right basilic vein was accessed with an 18-gauge needle. A guidewire was passed through the needle to the level of superior vena cava under fluoroscopic guidance. Needle was removed and a peel-away sheath w as inserted over the guidewire. The guidewire was removed and a 38 cm long trimmed 4 Bolivian single l umen power PICC was inserted via the patent right basilic vein with the distal tip resting in superio r vena cava. The PICC line was flushed with 5 mL of saline flush. Proximal portion PICC line was ad hered to the patient's arm the sterile dressing. The sonographic images were saved to PACS. The pro cedure was accomplished without apparent complication. The dose area product was 88.65 micro-Dwyer pe r meter squared. On the final fluoroscopic image incidentally noted is an ectatic aorta and prominen ce of the central pulmonary arteries. Is also elevation of the right hemidiaphragm IMPRESSION: 1. Successful placement of a 38 cm long trimmed 4 Bolivian single lumen power PICC inserted via the pa tent right basilic vein with the distal tip resting in superior vena cava Prominent central pulmonary arteries which can be seen with pulmonary arterial hypertension Ectatic aorta Report Dictated By: Conchita Martínez MD at 08/04/2018 5:32 PM Report E-Signed By: Conchita Martínez MD at 08/04/2018 5:34 PM WSN:[email or web address]
--- NOTE | 2018-08-04 17:40 | RADIOLOGY IMAGING REPORT ---
FACILITY: [facility] PATIENT NAME: Romel Singh : 1955 MR: [id number] V: [id number] EXAM DATE: ORDERING PHYSICIAN: TANNER ARTHUR TECHNOLOGIST: [place] [facility] [place] Romel [place] : 1955 Visit/Account:[id number] Date of Sevice: 08/04/2018 Exam type: US GUIDANCE VASCULAR ACCESS, PICC LINE INSERTION History: residential IV abx Comparison: None. Findings: Informed consent was obtained. The patient's right arm was prepped and draped usual sterile fashion. Local anesthesia was a copy with 1% lidocaine. Under direct sonographic guidance the patent right basilic vein was accessed with an 18-gauge needle. A guidewire was passed through the needle to the level of superior vena cava under fluoroscopic guidance. Needle was removed and a peel-away sheath w as inserted over the guidewire. The guidewire was removed and a 38 cm long trimmed 4 Icelandic single l umen power PICC was inserted via the patent right basilic vein with the distal tip resting in superio r vena cava. The PICC line was flushed with 5 mL of saline flush. Proximal portion PICC line was ad hered to the patient's arm the sterile dressing. The sonographic images were saved to PACS. The pro cedure was accomplished without apparent complication. The dose area product was 88.65 micro-Dwyer pe r meter squared. On the final fluoroscopic image incidentally noted is an ectatic aorta and prominen ce of the central pulmonary arteries. Is also elevation of the right hemidiaphragm IMPRESSION: 1. Successful placement of a 38 cm long trimmed 4 Icelandic single lumen power PICC inserted via the pa tent right basilic vein with the distal tip resting in superior vena cava Prominent central pulmonary arteries which can be seen with pulmonary arterial hypertension Ectatic aorta Report Dictated By: Conchita Martínez MD at 08/04/2018 5:32 PM Report E-Signed By: Conchita Martínez MD at 08/04/2018 5:34 PM WSN:[email or web address]
[2018-08-04] MEDS: amLODIPine BESYL(*) 5 MG TAB PO SCH (21:04)
[2018-08-05 02:50] VITALS: BP 172/99
[2018-08-05] MEDS: CEFEPIME HCL 2 GM VIAL IVP SCH (04:45)
[2018-08-05 07:40] VITALS: BP 208/124
[2018-08-05 07:51] VITALS: BP 186/106
--- NOTE | 2018-08-05 09:16 | Medical Nutrition Therapy ---
Nutrition Anthropometrics Height (Inches): 73 Weight (Pounds): 255 Weight (Calculated Kilograms): 115.666 BMI: 33.64 Jacinto Nutrition Score: Adequate Jacinto Nutrition Risk Score: 19 Dietary Referral Nutrition Risk Factors: Nutrition Risk Comment: Physical Findings Physical Appearance: Obese BMI 30-39 Skin Appearance Skin Appearance: Edema Edema Location Modifier: Left Edema Location: Arm Type of Edema: Degree of Edema: Gastrointestinal Symptoms GI Symtoms: Tube Present: Bowel Sounds: Recent Bowel Pattern: Stool Characteristics: Nutritional Diagnosis Nutritional Risk Acuity 2: Abcess/Non-Healing Wound Past Medical History: HTN, umbilical hernia, glaucoma, former smoker Nutritional Acuity: 2-Moderate Nutrition Diagnosis: Increased Nutrient Needs Nutrition Etiology: Physiological Causes Nutrition Problem/Etiology/Sym: 08/03 Increased nutrient needs related to physiological causes as evidence by left elbow insision not healing properly. Adjusted Energy Requirement Re: 2307 (Adj HB: AF 1.3 255kg) Protein Requirement: 127 (1.1g/kg x 115.666kg) Fluid Requirement: 2307 (1mL/sergio) Diet Type: NPO (Nothing by Mouth) Nutrition Intervention: Incr diet as tolerated Nutrition Monitoring & Eval RD Patient Assessment Time: [address] Assessment Type: RD Assessment Patient Nutrition Acuity: 2-Moderate Follow Up Date: August 05, 2018 Nutritional Comment: 08/03 Pt came in d/t left elbow not properly healing post surgery. Pt was dx with HTN, hypokalemia, osteomyelitis, cellulitis, and sptic arthritis. Pt has a CRP of 7.2, which is most likely d/t surgery. Pt has low Hgb 10.5 and Hct 20.8. Pt is day 1 NPO. Will continue to monitor as pt progresses to PO diet. AUGUSTA ROCA August 03, 2018 09:14
[2018-08-05 09:17] VITALS: BP 178/82
[2018-08-05] MEDS: HYDROCHLOROTHIAZIDE 25 MG TAB PO SCH (09:18)
[2018-08-05] MEDS: OLMESARTAN 20 MG TAB PO SCH (09:18)
[2018-08-05 12:38] VITALS: BP 217/102
[2018-08-05] MEDS: VANCOMYCIN(*) 1 GM VIAL 1 GM, VANCOMYCIN HCL 0.750 GM VIAL 0.75 GM in NS(*) 0.9% 250 ML... IVPB SCH (12:46)
--- NOTE | 2018-08-05 14:02 | Medical Nutrition Therapy ---
Nutrition Anthropometrics Height (Inches): 73 Weight (Pounds): 255 Weight (Calculated Kilograms): 115.666 BMI: 33.64 Jacinto Nutrition Score: Adequate Jacinto Nutrition Risk Score: 20 Dietary Referral Nutrition Risk Factors: Nutrition Risk Comment: Physical Findings Physical Appearance: Obese BMI 30-39 Skin Appearance Skin Appearance: Edema Edema Location Modifier: Left Edema Location: Hand Type of Edema: Degree of Edema: 2+ Gastrointestinal Symptoms GI Symtoms: Tube Present: Bowel Sounds: Recent Bowel Pattern: Stool Characteristics: Nutrition/Food History Good Nutritional Diagnosis Nutritional Risk Acuity 4: Good Appetite Past Medical History: HTN, umbilical hernia, glaucoma, former smoker Nutritional Acuity: 3-Mild Nutrition Diagnosis: Increased Nutrient Needs Nutrition Etiology: Physiological Causes Nutrition Problem/Etiology/Sym: 08/03 Increased nutrient needs related to physiological causes as evidence by left elbow insision not healing properly. Adjusted Energy Requirement Re: 2307 (Adj HB: AF 1.3 255kg) Protein Requirement: 127 (1.1g/kg x 115.666kg) Fluid Requirement: 2307 (1mL/sergio) Diet Type: Diet as Tolerated BRANDIE/REG Nutrition Intervention: Cont diet as ordered Drug: Diuretics Nutrition Monitoring & Eval Nutrition Goals: Eat 75-100% Meal, Drink > 2 liters/day RD Patient Assessment Time: [address] Assessment Type: RD Re-Assessment Patient Nutrition Acuity: 3-Mild Follow Up Date: August 10, 2018 Nutritional Comment: 08/03 Pt came in d/t left elbow not properly healing post surgery. Pt was dx with HTN, hypokalemia, osteomyelitis, cellulitis, and sptic arthritis. Pt has a CRP of 7.2, which is most likely d/t surgery. Pt has low Hgb 10.5 and Hct 20.8. Pt is day 1 NPO. Will continue to monitor as pt progresses to PO diet. CD 08/05 Pt is no longer NPO and is eating 100% of meals. Pt is now on a diuretic which should help edema to resolve, resulting in wt loss. Pt wound is now found to be dry and intact. Will continue to monitor and encourage intake. AUGUSTA ROCA August 05, 2018 09:30
--- NOTE | 2018-08-05 14:04 | Hospitalist Progress Note ---
Subjective Progress Notes Subjective He was admitted with septic arthritis. He had no acute events overnight. Patient Complains of: Cardiovascular: No: Chest Pain Respiratory: No: Shortness of Breath Physical Exam Vital Signs Date Time Temp Pulse Resp B/P (MAP) Pulse Ox O2 Delivery O2 Flow Rate FiO2 08/05/18 07:40 98.5 71 16 208/124 (152) 94 Room Air 08/05/18 02:50 1.0 Intake and Output 08/05/18 07:00 Intake Total 1620 ml Balance 1620 ml Intake Oral 1620 ml # Voids 4 General Appearance: Alert, Awake, No Acute Distress, Afebrile Neuro: No Gross deficits Cardiovascular: Regular Rate and Rhythm Respiratory: No Respiratory Distress, Clear to Auscultation Extremities: Warm, Perfused, Edema (2+ pitting edema to left arm) Psych: Alert & Oriented X3, Appropriate Mood & Affect Result Diagram: 08/05/18 0523 08/04/18 0604 Assessment and Plan Problems: (1) Septic arthritis Status: Acute Assessment & Plan: He was started on IV Zosyn and vancomycin, Zosyn changed to cefepime. Monitor vancomycin levels. I&D performed by Dr. Alicea on 08/03. He did not see evidence of osteomyelitis. He would like at least 3 weeks antibiotic treatment, but one culture was positive for Staph Aureus so will add one more week to antibiotic infusions. Currently wound culture is growing staph Aureus with beta lactam positive. He had PICC placement 08/04. panel edge sealer helping with antibiotic infusion discharge plan. At this time will change Vancomycin to Ancef 2gm q 8hours IV infusion for 28 days.Rx written for patient to get infusions at home. (2) Osteomyelitis Status: Acute Assessment & Plan: See above. (3) HTN (hypertension) Status: Chronic Assessment & Plan: Will monitor his BPs and resume his Benicar, HCTZ, and amlodipine as needed. Will modify regimen if necessary. (4) Hypokalemia Status: Acute Assessment & Plan: Improved, supplement PRN. Watch labs. (5) Cellulitis Status: Acute Assessment & Plan: See above. Exam Sepsis Risk: No Definite Risk Problem Qualifiers (1) Septic arthritis: Septic arthritis location: elbow Septic arthritis organism: due to unspecified organism Laterality: left Qualified Codes: M00.9 - Pyogenic arthritis, unspecified (2) Osteomyelitis: Osteomyelitis type: unspecified type Osteomyelitis location: multiple sites Qualified Codes: M86.9 - Osteomyelitis, unspecified (3) Cellulitis: Site of cellulitis: extremity Site of cellulitis of extremity: upper extremity Laterality: left Qualified Codes: L03.114 - Cellulitis of left upper limb TANNER AR[facility] August 05, 2018 14:04
[2018-08-05] MEDS ORDERED: MAGNESIUM HYDROXIDE* 30ML UDCP PO PRN (15:40)
[2018-08-05] MEDS: oxyCODON/ACET (*)5/325MG (CII) 1 TAB TAB PO PRN (18:49)
[2018-08-05 21:10] VITALS: BP 171/88
[2018-08-05] MEDS: amLODIPine BESYL(*) 5 MG TAB PO SCH (21:14)
[2018-08-05] MEDS: ceFAZolin(*) 2GM/D5W 50ML 50 ML IVPB SCH (21:15)
[2018-08-06] MEDS ORDERED: ceFAZolin(*) 2GM/D5W 50ML 50 ML IVPB SCH
[2018-08-06] MEDS: ceFAZolin(*) 2GM/D5W 50ML 50 ML IVPB SCH (05:33)
[2018-08-06 07:30] VITALS: BP 178/97
[2018-08-06] MEDS ORDERED: HYDR-385 PO (07:44)
--- NOTE | 2018-08-06 07:47 | Antimicrobial Stewardship ---
Antimicrobial Time Out Antimicrobial Stewardship MD Service: Hospitalist Indications: Other (septic arthritis) Antimicrobial Used Augmentin as an outpatient. Vancomycin and Zosyn started ; Zosyn changed to Cefepime. Wound cultures growing staph aureus sensitive to cefazolin, so antibiotics changed to cefazolin 2 gm iv q8 hours. Start Date: August 03, 2018 Culture Results: Yes ([facility]) MARK MORGAN August 06, 2018 07:47
[2018-08-06] MEDS: OLMESARTAN 20 MG TAB PO SCH (08:23)
[2018-08-06] MEDS: HYDROCHLOROTHIAZIDE 25 MG TAB PO SCH (08:23)
--- NOTE | 2018-08-06 10:53 | Hospitalist Progress Note ---
Subjective Progress Notes Subjective He was admitted with septic arthritis. He plans to go home today with IV antibiotic infusion throughout PICC. Patient Complains of: Cardiovascular: No: Chest Pain Respiratory: No: Shortness of Breath Physical Exam Vital Signs Date Time Temp Pulse Resp B/P (MAP) Pulse Ox O2 Delivery O2 Flow Rate FiO2 08/06/18 07:30 92 Room Air 08/06/18 07:30 97.8 75 18 178/97 (124) 08/05/18 02:50 1.0 Intake and Output 08/06/18 01:00 Intake Total 1790 ml Balance 1790 ml Intake Oral 1790 ml # Voids 5 # Bowel Movements 1 General Appearance: Alert, Awake, No Acute Distress, Afebrile Neuro: No Gross deficits Cardiovascular: Regular Rate and Rhythm Respiratory: No Respiratory Distress, Clear to Auscultation Extremities: Warm, Perfused, Edema (non pitting edema to left arm) Psych: Alert & Oriented X3, Appropriate Mood & Affect Result Diagram: 08/06/18 0530 08/04/18 0604 Assessment and Plan Problems: (1) Septic arthritis Status: Acute Assessment & Plan: He was started on IV Zosyn and vancomycin, Zosyn was changed to cefepime. I&D performed by Dr. Alicea on 08/03. He did not see evidence of osteomyelitis. He would like at least 3 weeks antibiotic treatment, but one culture was positive for Staph Aureus so will add one more week to antibiotic infusions, for a total of 4 week IV antibiotics. Currently wound culture is growing staph Aureus with beta lactam positive. He had PICC placement 08/04. master planner helped with antibiotic infusion discharge plan to have patient infuse abx at home. At this time will change Vancomycin to Ancef 2gm q 8hours IV infusion for 28 days based off culture result. Rx written for patient to get infusions at home. He will follow up weekly with PCP (Dr. Townsend) for labs and management of Ancef. He will also follow up with Dr. Alicea in one week. (2) Osteomyelitis Status: Acute Assessment & Plan: See above. (3) HTN (hypertension) Status: Chronic Assessment & Plan: Continue chronic Benicar, HCTZ, and amlodipine. (4) Hypokalemia Status: Acute Assessment & Plan: Improved with supplement. (5) Cellulitis Status: Acute Assessment & Plan: See above. Exam Sepsis Risk: No Definite Risk Problem Qualifiers (1) Septic arthritis: Septic arthritis location: elbow Septic arthritis organism: due to unspecified organism Laterality: left Qualified Codes: M00.9 - Pyogenic arthritis, unspecified (2) Osteomyelitis: Osteomyelitis type: unspecified type Osteomyelitis location: multiple sites Qualified Codes: M86.9 - Osteomyelitis, unspecified (3) Cellulitis: Site of cellulitis: extremity Site of cellulitis of extremity: upper extremity Laterality: left Qualified Codes: L03.114 - Cellulitis of left upper limb TANNER ARTHUR [employer] August 06, 2018 10:53
--- NOTE | 2018-08-17 15:03 | DISCHARGE SUMMARY ---
DATE OF ADMISSION: 08/03/2018 DATE OF DISCHARGE: 08/06/2018 The patient was admitted to [facility] [place]. DISPOSITION Home. COMPLICATIONS None. MEDICATIONS Resume outpatient medications except for starting the IV antibiotics which we had started him on. CONDITION Stable upon discharge. INDICATIONS AND HISTORY This patient is a 63-year-old male that presented to my clinic for evaluation of left arm swelling and infection. We had done two previous procedures on him on that left arm and then he started having significant amount of erythema and purulent drainage associated with it and so we got him set up to do an irritation and debridement associated with that and then admitted him shortly afterwards for that same problem. PROCEDURE Irrigation and debridement of the left arm on 08/03/2018. COMPLICATIONS None. CONSULTS Internal Medicine. DESCRIPTION OF HOSPITAL COURSE The patient was admitted the night before the procedure right around midnight after he had a significant amount of erythema and drainage associated with it. We got him set up to do the irrigation and debridement on 08/03/2018 and the risks and benefits were discussed with the patient and informed consent was obtained. Once we washed him out, he looked significant better and he improved over the 3 days, but then we ended up having to get a PICC line secondarily due to the fact that he needed IV antibiotics and he will be on IV antibiotics for a few weeks time. He felt significantly better after the first couple of days and was able to get up and move around and do much better after that initial wash- out. There were no major other issues during the hospital stay. CHERYL
== END 2018-08-06 08:55 | disposition home or self-care (01) | DRG 501 ==
LOC: ER 20:43 → MED 08-03 00:01
PROVIDERS: ADMIT Orthopaedic Surgery; ATTEND Orthopaedic Surgery
PROC: 0JDH0ZZ Extraction of Left Lower Arm Subcutaneous Tissue and Fascia, Open Approach (ICD-10-PCS; principal; 2018-08-03 16:56)
PROC: 02HV33Z Insertion of Infusion Device into Superior Vena Cava, Percutaneous Approach (ICD-10-PCS; 2018-08-04)
PROC: B548ZZA Ultrasonography of Superior Vena Cava, Guidance (ICD-10-PCS; 2018-08-04)
DX: M86.9 Osteomyelitis, unspecified (principal); M00.022 Staphylococcal arthritis, left elbow; L03.114 Cellulitis of left upper limb; B95.61 Methicillin susceptible Staphylococcus aureus infection as the cause of diseases classified elsewhere; I10 Essential (primary) hypertension; F17.220 Nicotine dependence, chewing tobacco, uncomplicated; E87.6 Hypokalemia; H40.9 Unspecified glaucoma
CPT/HCPCS: 36415; 36573; 80202; 82040; 82247; 82310; 82374; 82435; 82565; 82947; 84075; 84132; 84155; 84295; 84450; 84460; 84520; 85014; 85018; 85025; 85651; 86140; 87040; 87070; 87073; 87077; 87186; 87205; 93005; 96365; 96367; 96375; 96376; 97165; 99285; C1751; J0360; J0690; J0692; J1100; J1170; J2001; J2250; J2405; J2543; J2704; J2795; J3010; J3370; J3480; J7040; J7050; Q9967

== ENCOUNTER 2018-08-18 07:44 | Outpatient (RCR) | payer OTHER ==
[~2018-08-18 07:44] MED LIST changes: +AMOX1TAB9 PO; +HYDR-385 PO
[2018-08-18 09:26] VITALS: BP 158/107
[2018-08-18 16:52] LABS: PLATELET COUNT, AUTOMATED 307 K/uL (150-450)
== END 2018-09-20 13:06 | disposition home or self-care (01) ==
LOC: SPU 07:44
PROVIDERS: ATTEND Orthopaedic Surgery
DX: L08.9 Local infection of the skin and subcutaneous tissue, unspecified (principal)
CPT/HCPCS: 82040; 82247; 82310; 82374; 82435; 82565; 82947; 84075; 84132; 84155; 84295; 84450; 84460; 84520; 85025; 85651; 86140